=== PATIENT | male | born 1955 ===

== ENCOUNTER 2019-07-12 14:18 | Emergency (ER) | payer OTHER ==
[~2019-07-12] VITALS: Ht 170.2 cm; Wt 65.8 kg
[2019-07-12] MEDS ORDERED: FOCALIN XR20 MG PO (14:33)
[2019-07-12] MEDS ORDERED: XANAX XR0.5 MG PO (14:33)
[2019-07-12] MEDS ORDERED: CARDURA8 MG PO (14:34)
[2019-07-12] MEDS ORDERED: AMBIEN10 MG PO (14:34)
== END 2019-07-12 17:21 | disposition home or self-care (01) ==
LOC: ER 14:18
DX: S46.811S Strain of other muscles, fascia and tendons at shoulder and upper arm level, right arm, sequela (principal); X50.0XXS Overexertion from strenuous movement or load, sequela